=== PATIENT | female | born 1965 | race Caucasian/White ===

== ENCOUNTER 2025-07-24 15:15 | Inpatient (IN) ==
[2025-07-24 16:46] LABS: Hematocrit (blood only) 38.6 % (37.0-47.0); Hemoglobin 13.3 g/dl (12.0-16.0); Immature Granulocytes # (auto) 0.02 K/uL (0.01-0.20); Immature Granulocytes % (auto) 0.3 %; Mean Corpuscular Hemoglobin 30.2 pg (25.0-34.0); Mean Corpuscular Volume 87.5 fL (80.0-100.0); Platelet Count 261 K/uL (130-400); RDW Standard Deviation 43.2 fL (36.4-46.3); Red Blood Count 4.41 M/uL (4.20-5.40); White Blood Count 6.60 K/ul (4.8-10.8)
[2025-07-24 17:03] LABS: Alanine Aminotransferase 209.0 U/L (7-52); Albumin Globulin Ratio 1.4 (0.9-2); Albumin Level 4.4 gm/dl (3.4-5.0); Alkaline Phosphatase 320.0 U/L (34-104); Anion Gap 11.0 (3-11); Bilirubin,Total 12.6 mg/dl (0.2-1.0); Blood Urea Nitrogen 15.0 mg/dl (6-23); Calcium 9.3 mg/dl (8.6-10.3); Carbon Dioxide 23.0 mmol/L (21-32); Chloride 103.0 mmol/L (98-107); Creatinine Clr Calc Pharmacy 53.7 ml/min; Globulin 3.1 gm/dl (2.5-4.0); Glucose 97.0 mg/dl (70-99(Fasting)); Lipase 14.0 U/L (11-82); Potassium 3.9 mmol/L (3.5-5.1); Sodium 137.0 mmol/L (136-145); Total Protein 7.5 gm/dl (6.0-8.3)
[2025-07-24] MEDS: OPTIRAY 320 100ml IV ONE (17:35)
--- NOTE | 2025-07-24 18:12 | CT Scan Report ---
Technique: Axial computed tomography images were obtained of the abdomen and pelvis after the administration of intravenous contrast. No prior CT is available for comparison. Findings: The liver is overall of normal size, attenuation, and contour with no sign of cirrhosis or significant fatty infiltration. No liver mass lesion is seen. The portal vein is patent. The gallbladder appears unremarkable. There is intrahepatic and extrahepatic bile duct dilatation. There is an apparent 3 mm filling defect within the proximal common bile duct The spleen is of normal size. No focal splenic lesion is evident. The pancreas appears normal with no sign of acute or chronic pancreatitis and no mass lesion noted. The pancreatic duct is of normal caliber. The adrenal glands appear unremarkable. No definite renal or proximal ureteral calculi are seen on this contrast-enhanced study. There is no hydronephrosis or perinephric stranding. No renal mass lesion is identified. The aorta is of normal caliber. No abdominal adenopathy is seen. There is a small umbilicus hernia containing only fat. The stomach appears normal. There is no sign of small bowel obstruction. The colon appears unremarkable. The appendix appears normal also. No free intraperitoneal fluid or air is identified. No distal ureteral or bladder calculi are seen. No bladder mass lesion is evident. The iliac arteries are of normal caliber. No pelvic adenopathy is noted. The lungs bases appear clear. No fracture is identified. No focal osseous lesion is seen Impression: Bile duct dilatation with suspected obstructing choledocholithiasis findings on this exam that require communication between the performing entity and the patient following Patient Test Result Information Act ([place] ACT 112) guidelines. Electronically signed by Stephon Myers 07-24-2025 6:11 PM
--- NOTE | 2025-07-24 21:43 | History & Physical Report ---
Date of Service July 24, 2025 Assessment & Plan (1) Choledocholithiasis with obstruction: Plan 60-year-old female PMHx hypothyroidism presenting for referral by PCP for concerns of stone blood in biliary tract and concerns for jaundice. ED evaluation significant for transaminitis with AST 108, ALT 209, bilirubin 12.6, alkaline phosphatase 320. CTAP does show bile duct dilatation with suspected obstructing choledocholithiasis. At time of admission, there are no surrounding hospitals that are able to do ERCP for this patient even though admitting criteria here at [facility] recommends transfer. Pt to be admitted with plans for ERCP on 07/27, unless emergent condition arises requiring sooner transfer. #Obstructive choledocholithiasis Seen by PCP day of arrival. ED provider spoke with [facility] and ERCP cannot be completed until 07/28 across multiple hospital systems. Was told that the pt can only be transferred in the event of "an emergent condition." Dr. Mccormick to be at [facility] on 07/27 with ability to do ERCP at that time. Will manage pt with broad spectrum antibiotics IV, and keep prepped for possible surgical intervention if pt has acute worsening of symptoms such as hemodynamic instability, development of fever, worsening laboratory studies, etc. Will admit to [facility] PCU with low threshold for transfer. - CBC w/o leukocytosis/leukopenia, stable H&H; CMP bilirubin 12.9, AST 108, ALT 209, alkaline phosphatase 320; lipase 14 - trend CBC, LFTs - CTAP bile duct irritation with suspected obstructing choledocholithiasis. - NPO for now - IVF LR @ 125 mL/hr - Zofran prn N/V - Acetaminophen prn fever/pain (caution with extensive use, transaminitis), Dilaudid moderate/severe pain - Zosyn IV - MRCP pending - GI consulted - appreciate input + recs #Hyperthyroidism- H/o Graves disease, in remission. Followed with endocrinology, most recent visit 01/08/2024. No medications. Dispo: Admit, PCU - need close monitoring for acute worsening condition that would require emergent interventions/indicate transfer VTE Prophylaxis: SCDs This document was dictated utilizing [employer]. Please excuse any grammatical errors that may be secondary to use of this software. Admission and Anticipated Discharge Date Admission Date: 07/24/2025 History of Present Illness Chief Complaint: Jaundice Primary Care Provider: Kesha Oates DO 60-year-old female PMHx hypothyroidism presenting for referral by PCP for concerns of stone blood in biliary tract and concerns for jaundice. Patient states that 5 days [employer] she awoke with epigastric pain that did not feel the same as her normal indigestion. She states that moving around helped alleviate the pain some and when she took a Tums she did not notice any change in her symptoms. She ended up taking an Aleve which did help alleviate some of the discomfort she was having. 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 She denies any abdominal pain, N/V/D/C, or fever/chills. She denies any symptoms with eating, does state occasionally symptoms will make her have looser bowel movements than others, but this is not a new occurrence to her. She has not been sick otherwise. No chest pain, SOB, palpitations, numbness/tingling, URI symptoms, LUTS, weakness, syncope, or falls. Patient is concerned regarding if her insurance will cover hospital stay, initially leading to conversation about a transfer or needed going to a hospital that would assure except her insurance. She then later notes that she would just like to go to a hospital that we will treat her appropriately if transfer is needed. She is also concerned about her 5 cats that live at home, which she has rescued. States that they have a very intensive daily routine with them and she is concerned that they are not to be taking care of that she would. Patient does express some anxious feelings regarding pain for the hospital stay. Assured her that admission and treatment is highly recommended to prevent unwanted complications. Patient agreeable to stay. ED evaluation reveals CBC without leukocytosis or leukopenia, stable H&H; CMP total bilirubin 12.6, AST 108, ALT 209, alkaline phosphatase 320; CTAP bile duct dilatation with suspected obstructing choledocholithiasis. Please see Dr. Taylor's attestation for adjustments/additions to treatment plan. Allergies Allergy/AdvReac Type Severity Reaction Status Date / Time flu vaccines Allergy Uncoded 01/08/24 13:33 Home Medications Medication Instructions Recorded Confirmed Type No Known Home Medications 07/24/25 07/24/25 History Past Med/Surg History Problem List Jaundice (Acute) Choledocholithiasis with obstruction (Acute) Weight loss Hyperthyroidism Social History Smoking Status: Current every day smoker Tobacco Type: Cigarettes Cigarettes Per Day: 7; Do You Dip or Chew Tobacco: No; Tobacco Cessation Education Requested by Patient: No Hx Alcohol Use: No Hx Substance Use: No Preferred Language: Comoran Communication Ability: 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 Beliefs That Will Affect Care: None Current Living Situation: Alone Other Information That Helps Us Care for You: No Feels Safe at Home: Yes Safety Concerns: Feels Safe At This Time Assistive Devices: Contacts Review of Systems Review of Systems: All systems reviewed & are unremarkable except as noted in Subjective Physical Exam Physical Exam: General: No acute distress Skin: Warm and dry; jaundice down to chest Head: Normocephalic, atraumatic Eyes: PERRL, conjunctivae clear, sclera icteric ENT: External ear and ear canal without swelling; nose atraumatic; good dentition, tongue normal appearance, pharynx normal Neck: Supple, no LAD Cardio: RRR, no M/G/R, S1 and S2 normal Resp: No respiratory distress, Lungs CTA in all lobes bilaterally, no wheezes, rales, or rhonchi Abdomen: Soft, symmetric, nontender; negative Watkins sign; No masses or hepatosplenomegaly; Bowel sounds normoactive MSK: No deformities; pulses palpable and equal; no edema. Neuro: Awake, alert; Sensation intact bilaterally; CN grossly intact Psych: Tearful at times when discussing finances and pets at home; appropriate mood and affect; good judgement and insight. CousinPaulina, present in room at time of visit. Results & Data Results & Data Vital Signs (Past 12 Hours) Vital Signs Temp Pulse Pulse Resp BP BP Pulse Ox 07/24/25 20:48 69 19 123/78 97 07/24/25 20:13 64 19 138/81 98 07/24/25 15:59 36.0 C L 73 18 144/90 H 96 O2 Del Method 07/24/25 20:48 Room Air 07/24/25 20:13 Room Air 07/24/25 15:59 Room Air Laboratory Results 07/24/25 16:32 WBC 6.60 RBC 4.41 Hgb 13.3 Hct 38.6 MCV 87.5 MCH 30.2 MCHC 34.5 RDW Std Deviation 43.2 RDW Coeff of Nia 13.4 Plt Count 261 MPV 9.9 Immature Gran % (Auto) 0.3 Neut % (Auto) 73.9 Lymph % (Auto) 17.0 Randall % (Auto) 8.0 Eos % (Auto) 0.5 Baso % (Auto) 0.3 Neut # (Auto) 4.88 Lymph # (Auto) 1.12 L Randall # (Auto) 0.53 Eos # (Auto) 0.03 Baso # (Auto) 0.02 Immature Gran # (Auto) 0.02 Sodium 137 Potassium 3.9 Chloride 103 Carbon Dioxide 23 Anion Gap 11 BUN 15 Creatinine 1.14 Est Cr Clr Drug Dosing 53.7 eGFR 55.80 BUN/Creatinine Ratio 13.2 Glucose 97 Calcium 9.3 Total Bilirubin 12.6 H AST 108 H ALT 209 H Alkaline Phosphatase 320 H Total Protein 7.5 Albumin 4.4 Globulin 3.1 Albumin/Globulin Ratio 1.4 Lipase 14 Diagnostic Findings Abdomen/Pelvis CT 07/24/25 16:09 Technique: Axial computed tomography images were obtained of the abdomen and pelvis after the administration of intravenous contrast. No prior CT is available for comparison. Findings: The liver is overall of normal size, attenuation, and contour with no sign of cirrhosis or significant fatty infiltration. No liver mass lesion is seen. The portal vein is patent. The gallbladder appears unremarkable. There is intrahepatic and extrahepatic bile duct dilatation. There is an apparent 3 mm filling defect within the proximal common bile duct The spleen is of normal size. No focal splenic lesion is evident. The pancreas appears normal with no sign of acute or chronic pancreatitis and no mass lesion noted. The pancreatic duct is of normal caliber. The adrenal glands appear unremarkable. No definite renal or proximal ureteral calculi are seen on this contrast-enhanced study. There is no hydronephrosis or perinephric stranding. No renal mass lesion is identified. The aorta is of normal caliber. No abdominal adenopathy is seen. There is a small umbilicus hernia containing only fat. The stomach appears normal. There is no sign of small bowel obstruction. The colon appears unremarkable. The appendix appears normal also. No free intraperitoneal fluid or air is identified. No distal ureteral or bladder calculi are seen. No bladder mass lesion is evident. The iliac arteries are of normal caliber. No pelvic adenopathy is noted. The lungs bases appear clear. No fracture is identified. No focal osseous lesion is seen Impression: Bile duct dilatation with suspected obstructing choledocholithiasis findings on this exam that require communication between the performing entity and the patient following Patient Test Result Information Act ([place] ACT 112) guidelines. Electronically signed by Stephon Myers 07-24-2025 6:11 PM Code Status & VTE Plan Code Status Full Supervising Physician Co-Signing Physician Notes Attending addendum: I have physically seen this patient, have supervised the RAJANI's activities, and agree with the H&P unless as otherwise noted. Assessment and Plan: The patient is a 60-year-old female past medical history including hyperthyroidism who was referred by her PCP due to concerns regarding jaundice. ED evaluation with the following abnormal laboratories: Bilirubin 12.6, AST 108, ALT 209, alkaline phosphatase 320. CT scan of abdomen pelvis was concerning for intra and extrahepatic biliary ductal dilatation, and possible obstructive choledocholithiasis. [facility] Abnormal LFTs/obstructive jaundice pattern- Laboratories as above, follow serially CT scan suggestive of intrahepatic and extrahepatic bile duct dilatation and possible obstructing stone in the common bile duct. N.p.o. Zofran 4 mg IV every 6 hours as needed Zosyn 4.5 g IV every 8 hours LR at 125 mL/h Hold acetaminophen Order MRCP Of note, tertiary care centers including [facility] and [facility] both said that the patient did not require acute transfer, and would except the patient if she worsened. Remaining orders and notations as noted PG Care Time/CCT Total # of Minutes Spent Total Time Spent with Patient: Total time spent is greater than 50% in coordination of care (as documented) at patient's floor/unit and/or counseling patient: Coding Level of Care Code 09001 INT INP/OBS CARE 3/75MIN Diagnoses Choledocholithiasis with obstruction K80.51
--- NOTE | 2025-07-24 22:03 | Emergency Department Note ---
Impression & Plan Choledocholithiasis with obstruction, Jaundice ED Provider Note NAME: SORAYA FERGUSON AGE: 60 SEX: F : 1965 ARRIVES VIA: Walk-In INFORMANT: Patient, ED PROVIDER(S): Albin Nicholson MD CHIEF COMPLAINT: Abnormal abdominal ultrasound HPI: This is a 60-year-old female seen for abdominal ultrasound abnormality. Patient reported having pain on Sunday patient took some pain medication as improved. Since that she has had no current symptoms aside from worsening jaundice. She notes her eyes became yellow. She talked to her primary care doctor who ordered blood work and an ultrasound. This showed abnormality showing possible biliary tract. She was sent to the hospital for further workup. She reports no fever, chills, nausea, vomiting, pain, shortness of breath or chest pain. ROS: See above HPI for pertinent positives & negatives. A total of 10 systems reviewed and were otherwise negative. PAST MEDICAL HISTORY: See Below PAST SURGICAL HISTORY: See Below FAMILY HISTORY: See Below SOCIAL HISTORY: See Below HOME MEDICATIONS: See Below ALLERGIES: See Below VITALS: See Below PHYSICAL EXAMINATION: General: resting comfortably in no acute distress Head: Normocephalic and atraumatic Eyes: Normal inspection, extraocular muscles intact, scleral icterus Ear, nose, throat: Normal external exam Neck: Normal range of motion Respiratory: lungs clear to auscultation bilaterally Cardiovascular: Regular rate/rhythm, no murmur GI: soft, nontender, no guarding or rebound Extremities: nontender, moves all extremities Neuro: The patient awake and alert, appropriately conversive, no focal deficits, symmetric faces Skin: Warm, dry, and intact, jaundice skin MEDICAL DECISION MAKING: This is a 60-year-old female presenting for abnormal ultrasound/jaundice. Patient had a CT imaging, blood work done at triage. - This reveals transaminitis 108/209 AST/ALT with a total bilirubin of 12.6. -CT imaging reveals CBD dilation with suspected obstructing choledocholithiasis. Patient may have these findings. -We currently do not have ERCP coverage at the hospital. Discussed with patient she will to go to [facility]. -Discussed with [facility], hospitalist, Dr. Fatima, except the patient however they did let me know that this was too [facility] [address] [facility]. They would not be able to do the ERCP until Sunday at the earliest. We then discussed possible transfer to [facility] which states he would not have a bed till Sunday and ERCP later on. -After discussion with patient, will attempt to admit the patient here as we do have ERCP coverage starting Sunday, 2 days from now. -Care shows Dr. Herrera for admission. -Dr Herrera, requests I call at another hospital to assess for ERCP needs - Discussed case with [facility], GI, EGS and hospitalist. Discussed clinical history, blood work, imaging. They state it is to be nonemergent ERCP and would not perform ERCP until Sunday at the earliest. They recommend if ERCP is available at this hospital to keep her. If things change such as fevers, sepsis, cholangitis to call back immediately for emergent ERCP needs. -Patient ultimately admitted to this hospital. Differential diagnosis: Cirrhosis, hepatitis, choledocholithiasis, cholangitis, cholecystitis Diagnostics interpreted by me: ECG: None Cardiac Monitoring: An order was placed for continuous cardiac monitoring. The monitor shows a rate of 69 with sinus rhythm. Past Med/Surg History Problem List (Updated 07/24/25 @ 23:54 by Albin Nicholson MD) Jaundice (Acute) Choledocholithiasis with obstruction (Acute) Weight loss Hyperthyroidism Social History Smoking Status: Current some day smoker Preferred Language: Ghanaian Feels Safe at Home: Yes Allergies Allergies Allergy/AdvReac Type Severity Reaction Status Date / Time flu vaccines Allergy Uncoded 01/08/24 13:33 Home Meds Home Medications Medication Instructions Recorded Confirmed No Known Home Medications 07/24/25 07/24/25 Results & Data (ED) Vital Signs Vital Signs - 24 hr 07/24/25 15:59 07/24/25 20:13 07/24/25 20:48 Temperature 36.0 C L Temperature Source Temporal Artery Scan Pulse Rate 73 Pulse Rate [Right Finger] 64 69 Respiratory Rate 18 19 19 Respiratory Effort / Characteristics Non-Labored Spontaneous Respiratory Depth Normal Blood Pressure 144/90 H Blood Pressure [Right Arm] 138/81 123/78 Blood Pressure Mean 108 Blood Pressure Mean [Right Arm] 100 93 Pulse Oximetry 96 98 97 Oxygen Delivery Method Room Air Room Air Room Air Sepsis New/Unexplained Change in Mental Status No Sepsis Action Taken by Nursing No Action Required Laboratory Data 07/24/25 16:32 07/24/25 16:32 Lab Results 07/24/25 Range/Units 16:32 WBC 6.60 (4.8-10.8) K/ul RBC 4.41 (4.20-5.40) M/uL Hgb 13.3 (12.0-16.0) g/dl Hct 38.6 (37.0-47.0) % MCV 87.5 (80.0-100.0) fL MCH 30.2 (25.0-34.0) pg MCHC 34.5 (32.0-36.0) g/dL RDW Std Deviation 43.2 (36.4-46.3) fL RDW Coeff of Nia 13.4 (11.5-14.5) % Plt Count 261 (130-400) K/uL MPV 9.9 (9.4-12.4) fL Immature Gran % (Auto) 0.3 % Neut % (Auto) 73.9 % Lymph % (Auto) 17.0 % [place] % (Auto) 8.0 % Eos % (Auto) 0.5 % Baso % (Auto) 0.3 % Neut # (Auto) 4.88 (1.40-6.50) K/uL Lymph # (Auto) 1.12 L (1.20-3.40) K/uL [place] # (Auto) 0.53 (0.11-0.59) K/uL Eos # (Auto) 0.03 (0.00-0.50) K/uL Baso # (Auto) 0.02 (0.00-0.20) K/uL Immature Gran # (Auto) 0.02 (0.01-0.20) K/uL Sodium 137 (136-145) mmol/L Potassium 3.9 (3.5-5.1) mmol/L Chloride 103 (98-107) mmol/L Carbon Dioxide 23 (21-32) mmol/L Anion Gap 11 (3-11) BUN 15 (6-23) mg/dl Creatinine 1.14 (0.6-1.2) mg/dl Est Cr Clr Drug Dosing 53.7 ml/min eGFR 55.80 BUN/Creatinine Ratio 13.2 (10-20) Glucose 97 (70-99(Fasting)) mg/dl Calcium 9.3 (8.6-10.3) mg/dl Total Bilirubin 12.6 H (0.2-1.0) mg/dl Direct Bilirubin 8.3 H (0-0.2) mg/dl AST 108 H (13-39) U/L ALT 209 H (7-52) U/L Alkaline Phosphatase 320 H (34-104) U/L Total Protein 7.5 (6.0-8.3) gm/dl Albumin 4.4 (3.4-5.0) gm/dl Globulin 3.1 (2.5-4.0) gm/dl Albumin/Globulin Ratio 1.4 (0.9-2) Lipase 14 (11-82) U/L Administered Medications Discontinued Medications Piperacillin Sod/Tazobactam Sod (Zosyn) 4.5 gm in 100 mls @ 200 mls/hr IV NOW STA; Protocol Stop: 07/24/25 23:37 Last Admin: 07/24/25 23:47 Dose: 200 mls/hr Documented By: Ioversol (Optiray 320 100ml) 93 ml IV ONCE ONE Stop: 07/24/25 17:36 Last Admin: 07/24/25 17:35 Dose: 93 ml Documented By: EAJesu Imaging Data Radiologist's Impression: Abdomen/Pelvis CT 07/24/25 16:09 Technique: Axial computed tomography images were obtained of the abdomen and pelvis after the administration of intravenous contrast. No prior CT is available for comparison. Findings: The liver is overall of normal size, attenuation, and contour with no sign of cirrhosis or significant fatty infiltration. No liver mass lesion is seen. The portal vein is patent. The gallbladder appears unremarkable. There is intrahepatic and extrahepatic bile duct dilatation. There is an apparent 3 mm filling defect within the proximal common bile duct The spleen is of normal size. No focal splenic lesion is evident. The pancreas appears normal with no sign of acute or chronic pancreatitis and no mass lesion noted. The pancreatic duct is of normal caliber. The adrenal glands appear unremarkable. No definite renal or proximal ureteral calculi are seen on this contrast-enhanced study. There is no hydronephrosis or perinephric stranding. No renal mass lesion is identified. The aorta is of normal caliber. No abdominal adenopathy is seen. There is a small umbilicus hernia containing only fat. The stomach appears normal. There is no sign of small bowel obstruction. The colon appears unremarkable. The appendix appears normal also. No free intraperitoneal fluid or air is identified. No distal ureteral or bladder calculi are seen. No bladder mass lesion is evident. The iliac arteries are of normal caliber. No pelvic adenopathy is noted. The lungs bases appear clear. No fracture is identified. No focal osseous lesion is seen Impression: Bile duct dilatation with suspected obstructing choledocholithiasis findings on this exam that require communication between the performing entity and the patient following Patient Test Result Information Act ([place] ACT 112) guidelines. Electronically signed by Stephon Myers 07-24-2025 6:11 PM Discharge Plan Visit Data Chief Complaint: Referred by Doctor Stated Complaint: GALLSTONE, JAUNDICE ED Provider: Albin Nicholson Discharge Problem: Choledocholithiasis with obstruction, Jaundice Patient Disposition: Admitted As Inpatient Condition: Fair Forms Stand Alone Forms: [place] Prescriptions Prescriptions: No Action No Known Home Medications Referrals Referrals: Kesha Oates DO [Primary Care Provider] -
[2025-07-24] MEDS ORDERED: ONDANSETRON INJ 2 MG/ML 2 ML VIAL IV PRN (22:23)
[2025-07-24] MEDS ORDERED: ACETAMINOPHEN 1,000 MG/100 ML VIAL IV PRN (23:21)
[2025-07-24] MEDS ORDERED: HYDROmorphone INJ 0.5 MG/0.5 ML SYR IV PRN ×2 (23:22)
[2025-07-24] MEDS: PIPERACILLIN/TAZOBACTAM 4.5 GM/100 ML BAG IV STA (23:47)
[2025-07-25] MEDS: LACTATED RINGER'S 1,000 ML IV SCH (00:50)
[2025-07-25] MEDS ORDERED: ONDANSETRON INJ 2 MG/ML 2 ML VIAL IV PRN (00:50)
--- NOTE | 2025-07-25 01:21 | Magnetic Resonance Report ---
Exam(s): MRI MRCP EXAM: MR Abdomen Without Intravenous Contrast, MRCP Protocol CLINICAL HISTORY: Choledocholithiasis, bili 12. TECHNIQUE: Multiplanar magnetic resonance images of the abdomen without intravenous contrast using MRCP protocol. COMPARISON: CT abdomen and pelvis with contrast performed at 1727 hours FINDINGS: Limitations: There is respiratory artifact, which degrades image quality on multiple image slices. Bile ducts: There is marked dilation of the intrahepatic biliary tree, with the common bile duct measuring 10 mm at the dagoberto hepatis. There is abrupt transition distal to the dagoberto hepatis with an abrupt cutoff for meniscus sign. No obvious choledocholithiasis identified. The distal common bile duct is asymmetrically decompressed, measuring only 3 mm at the head of the pancreas. There is partially occlusive debris in the dependent biliary radicles serving segment 6 (series 4; image 20). Gallbladder: There is a rounded hypointense T2 structure in the gallbladder measuring 2.5 cm with the gallbladder collapsed around the structure. No definite gallbladder wall thickening. Liver: As above. No focal hepatic abnormality. Pancreas: Unremarkable. No ductal dilation. Spleen: Unremarkable. No splenomegaly. Adrenals: Unremarkable. No mass. Kidneys and ureters: Unremarkable. No hydronephrosis. Stomach and bowel: Unremarkable. No obstruction. IMPRESSION: 1. There is marked dilation of the intrahepatic biliary tree, with the common bile duct measuring 10 mm at the dagoberto hepatis. There is abrupt transition distal to the dagoberto hepatis with an abrupt cutoff for meniscus sign. No obvious choledocholithiasis identified. The distal common bile duct is asymmetrically decompressed, measuring only 3 mm at the head of the pancreas. Differential consideration includes tumefactive sludge or a subtle mass lesion in the common bile duct, not clearly evident. Histologic sampling of this lesion is recommended, as clinically indicated. 2. There is partially occlusive debris in the dependent biliary radicles serving segment 6 (series 4; image 20). 3. There is a rounded hypointense T2 structure in the gallbladder measuring 2.5 cm with the gallbladder collapsed around the structure. A gallstone is the primary consideration. Electronically signed by: Inderjit Reid MD 07/25/25 01:21 AM
[2025-07-25] MEDS: PIPERACILLIN/TAZOBACTAM 4.5 GM/100 ML BAG IV SCH (04:13)
[2025-07-25 07:02] LABS: Hematocrit (blood only) 36.2 % (37.0-47.0); Hemoglobin 12.9 g/dl (12.0-16.0); Mean Corpuscular Hemoglobin 30.9 pg (25.0-34.0); Mean Corpuscular Volume 86.6 fL (80.0-100.0); Platelet Count 236 K/uL (130-400); RDW Standard Deviation 41.7 fL (36.4-46.3); Red Blood Count 4.18 M/uL (4.20-5.40); White Blood Count 5.60 K/ul (4.8-10.8)
[2025-07-25 08:02] LABS: Alanine Aminotransferase 179 U/L (7-52); Albumin Level 4.0 gm/dl (3.4-5.0); Alkaline Phosphatase 296 U/L (34-104); Bilirubin,Total 13.6 mg/dl (0.2-1.0); Total Protein 6.8 gm/dl (6.0-8.3)
--- NOTE | 2025-07-25 09:06 | Gastrointestinal Consultation ---
Date of Consultation July 25, 2025 Assessment & Plan (1) Choledocholithiasis with obstruction: [place] woman with bile duct obstruction without evidence of cholangitis. She needs ERCP and will plan for Sunday. If she develops rigors or fever she will need emergent transfer to facility with ERCP this . Agree with covering with antibiotics. History of Present Illness Reason for Consultation: jaundice, choledocholithiasis Attending Physician: Janey Peters MD History of Present Illness 60 year old female who had a significant spell of "indigestion" on Sunday that lasted about 5 hours. It finally went away after taking motrin. On Sunday she noticed her urine turning dark and then she started turning yellow. She was admitted to hospital with bilirubin of over 12 and elevated LFT's. Her WBC is normal. CT and MRCP suggested choledocholithiasis or bile duct obstruction from some issue. She currently is feeling asymptomatic. Today's labs are slightly worse. She has had discomfort like that before but only rarely. She has never seen a GI doctor before. She has had cologuard testing done for cancer screening. Allergies Allergy/AdvReac Type Severity Reaction Status Date / Time flu vaccines Allergy Uncoded 01/08/24 13:33 Home Medications Medication Instructions Recorded Confirmed Type No Known Home Medications 07/24/25 07/24/25 History Patient History Social History Smoking Status: Current every day smoker Tobacco Type: Cigarettes Cigarettes Per Day: 7; Do You Dip or Chew Tobacco: No; Tobacco Cessation Education Requested by Patient: No Hx Alcohol Use: No Hx Substance Use: No Preferred Language: Maori Communication Ability: Effective Right Of Way Agent Required: No Beliefs That Will Affect Care: None Current Living Situation: Alone Other Information That Helps Us Care for You: No Feels Safe at Home: Yes Safety Concerns: Feels Safe At This Time Assistive Devices: Contacts Review of Systems Review of Systems: All systems reviewed & are unremarkable except as noted in HPI & below Physical Exam Physical Exam: Pleasant, icteric female in no distress Constitutional: WD/WN, vitals as above Eyes: sclerae not anicteric Neck: trachea midline, no thyromegaly Respiratory: normal respiratory effort, lungs clear to auscultation Cardiovascular: RRR, no murmur, no edema Gastrointestinal (Abdomen): normal bowel sounds, soft, nontender, no hepatosplenomegaly Results & Data Vital Signs (Past 12 Hours) Vital Signs Temp Pulse Pulse Resp BP Pulse Ox O2 Del Method 07/25/25 07:16 36.6 C 65 20 117/73 95 Room Air 07/25/25 07:08 55 L 07/25/25 03:05 36.7 C 63 17 125/78 96 Room Air 07/25/25 01:30 61 Laboratory Results 07/25/25 07/24/25 Range/Units 06:32 16:32 WBC 5.60 6.60 (4.8-10.8) K/ul RBC 4.18 L 4.41 (4.20-5.40) M/uL Hgb 12.9 13.3 (12.0-16.0) g/dl Hct 36.2 L 38.6 (37.0-47.0) % MCV 86.6 87.5 (80.0-100.0) fL MCH 30.9 30.2 (25.0-34.0) pg MCHC 35.6 34.5 (32.0-36.0) g/dL RDW Std Deviation 41.7 43.2 (36.4-46.3) fL RDW Coeff of Nia 13.2 13.4 (11.5-14.5) % Plt Count 236 261 (130-400) K/uL MPV 10.3 9.9 (9.4-12.4) fL Immature Gran % (Auto) 0.3 % Neut % (Auto) 73.9 % Lymph % (Auto) 17.0 % [place] % (Auto) 8.0 % Eos % (Auto) 0.5 % Baso % (Auto) 0.3 % Neut # (Auto) 4.88 (1.40-6.50) K/uL Lymph # (Auto) 1.12 L (1.20-3.40) K/uL [place] # (Auto) 0.53 (0.11-0.59) K/uL Eos # (Auto) 0.03 (0.00-0.50) K/uL Baso # (Auto) 0.02 (0.00-0.20) K/uL Immature Gran # (Auto) 0.02 (0.01-0.20) K/uL Sodium 137 (136-145) mmol/L Potassium 3.9 (3.5-5.1) mmol/L Chloride 103 (98-107) mmol/L Carbon Dioxide 23 (21-32) mmol/L Anion Gap 11 (3-11) BUN 15 (6-23) mg/dl Creatinine 1.14 (0.6-1.2) mg/dl Est Cr Clr Drug Dosing 53.7 ml/min eGFR 55.80 BUN/Creatinine Ratio 13.2 (10-20) Glucose 97 (70-99(Fasting)) mg/dl Calcium 9.3 (8.6-10.3) mg/dl Total Bilirubin 13.6 H 12.6 H (0.2-1.0) mg/dl Direct Bilirubin TNP 8.3 H (0-0.2) mg/dl AST 95 H 108 H (13-39) U/L ALT 179 H 209 H (7-52) U/L Alkaline Phosphatase 296 H 320 H (34-104) U/L Total Protein 6.8 7.5 (6.0-8.3) gm/dl Albumin 4.0 4.4 (3.4-5.0) gm/dl Globulin 3.1 (2.5-4.0) gm/dl Albumin/Globulin Ratio 1.4 (0.9-2) Lipase 14 (11-82) U/L Diagnostic Findings Abdomen/Pelvis CT 07/24/25 16:09 Technique: Axial computed tomography images were obtained of the abdomen and pelvis after the administration of intravenous contrast. No prior CT is available for comparison. Findings: The liver is overall of normal size, attenuation, and contour with no sign of cirrhosis or significant fatty infiltration. No liver mass lesion is seen. The portal vein is patent. The gallbladder appears unremarkable. There is intrahepatic and extrahepatic bile duct dilatation. There is an apparent 3 mm filling defect within the proximal common bile duct The spleen is of normal size. No focal splenic lesion is evident. The pancreas appears normal with no sign of acute or chronic pancreatitis and no mass lesion noted. The pancreatic duct is of normal caliber. The adrenal glands appear unremarkable. No definite renal or proximal ureteral calculi are seen on this contrast-enhanced study. There is no hydronephrosis or perinephric stranding. No renal mass lesion is identified. The aorta is of normal caliber. No abdominal adenopathy is seen. There is a small umbilicus hernia containing only fat. The stomach appears normal. There is no sign of small bowel obstruction. The colon appears unremarkable. The appendix appears normal also. No free intraperitoneal fluid or air is identified. No distal ureteral or bladder calculi are seen. No bladder mass lesion is evident. The iliac arteries are of normal caliber. No pelvic adenopathy is noted. The lungs bases appear clear. No fracture is identified. No focal osseous lesion is seen Impression: Bile duct dilatation with suspected obstructing choledocholithiasis findings on this exam that require communication between the performing entity and the patient following Patient Test Result Information Act ([place] ACT 112) guidelines. Electronically signed by Stephon Myers 07-24-2025 6:11 PM Cholangiopancreatography MRI 07/24/25 22:23 Exam(s): MRI MRCP EXAM: MR Abdomen Without Intravenous Contrast, MRCP Protocol CLINICAL HISTORY: Choledocholithiasis, bili 12. TECHNIQUE: Multiplanar magnetic resonance images of the abdomen without intravenous contrast using MRCP protocol. COMPARISON: CT abdomen and pelvis with contrast performed at 1727 hours FINDINGS: Limitations: There is respiratory artifact, which degrades image quality on multiple image slices. Bile ducts: There is marked dilation of the intrahepatic biliary tree, with the common bile duct measuring 10 mm at the dagoberto hepatis. There is abrupt transition distal to the dagoberto hepatis with an abrupt cutoff for meniscus sign. No obvious choledocholithiasis identified. The distal common bile duct is asymmetrically decompressed, measuring only 3 mm at the head of the pancreas. There is partially occlusive debris in the dependent biliary radicles serving segment 6 (series 4; image 20). Gallbladder: There is a rounded hypointense T2 structure in the gallbladder measuring 2.5 cm with the gallbladder collapsed around the structure. No definite gallbladder wall thickening. Liver: As above. No focal hepatic abnormality. Pancreas: Unremarkable. No ductal dilation. Spleen: Unremarkable. No splenomegaly. Adrenals: Unremarkable. No mass. Kidneys and ureters: Unremarkable. No hydronephrosis. Stomach and bowel: Unremarkable. No obstruction. IMPRESSION: 1. There is marked dilation of the intrahepatic biliary tree, with the common bile duct measuring 10 mm at the dagobetro hepatis. There is abrupt transition distal to the dagoberto hepatis with an abrupt cutoff for meniscus sign. No obvious choledocholithiasis identified. The distal common bile duct is asymmetrically decompressed, measuring only 3 mm at the head of the pancreas. Differential consideration includes tumefactive sludge or a subtle mass lesion in the common bile duct, not clearly evident. Histologic sampling of this lesion is recommended, as clinically indicated. 2. There is partially occlusive debris in the dependent biliary radicles serving segment 6 (series 4; image 20). 3. There is a rounded hypointense T2 structure in the gallbladder measuring 2.5 cm with the gallbladder collapsed around the structure. A gallstone is the primary consideration. Electronically signed by: Inderjit Reid MD 07/25/25 01:21 AM
--- NOTE | 2025-07-25 11:15 | Surgery Consultation ---
Date of Consultation July 25, 2025 Assessment & Plan (1) Choledocholithiasis with obstruction: needs ERCP no plans for lap mary urgently large stone in GB 2.5 cm no signs of cholecystis likely plan lap mary as outpatient History of Present Illness Attending Physician: Janey Peters MD History of Present Illness This a 60YO admitted with painless jaundice. She noted her urine turning dark and then she started turning yellow last week. She was admitted to hospital with bilirubin of over 12 and elevated LFT's. Her WBC is normal. CT and MRCP suggested choledocholithiasis or bile duct obstruction. Allergies Allergy/AdvReac Type Severity Reaction Status Date / Time flu vaccines Allergy Uncoded 01/08/24 13:33 Home Medications Medication Instructions Recorded Confirmed Type No Known Home Medications 07/24/25 07/24/25 History Patient History Social History Smoking Status: Current every day smoker Tobacco Type: Cigarettes Cigarettes Per Day: 7; Do You Dip or Chew Tobacco: No; Tobacco Cessation Education Requested by Patient: No Hx Alcohol Use: No Hx Substance Use: No Preferred Language: Kyrgyz Communication Ability: Effective [employer] Checker Required: No Beliefs That Will Affect Care: None Current Living Situation: Alone Other Information That Helps Us Care for You: No Feels Safe at Home: Yes Safety Concerns: Feels Safe At This Time Assistive Devices: Contacts Review of Systems Constitutional: no fever and no chills Respiratory: no cough and no dyspnea Cardiovascular: no chest pain Gastrointestinal: no abdominal pain, no nausea and no vomiting Genitourinary: no dysuria Integumentary: + yellowing of the skin Neurologic: no localized weakness and no generalized weakness Psychiatric: no behavioral changes Endocrine: no fatigue Hematologic / Lymphatic: no easy bleeding and no easy bruising Physical Exam Constitutional: WD/WN, vitals as above Eyes: + scleral abnormality ENMT: external ear and nose normal, oropharynx normal Respiratory: normal respiratory effort, lungs clear to auscultation Cardiovascular: Rate/Rhythm: regular rate and regular rhythm Gastrointestinal (Abdomen): Inspection/Auscultation: abdomen normal to inspection and normal bowel sounds; abdomen not distended Percussion/Palpation: abdomen soft; abdomen nontender Musculoskeletal: Head/Neck/Chest: normocephalic and head atraumatic Skin: no rashes, warm and dry Psychiatric: Orientation: alert Results & Data Vital Signs (Past 12 Hours) Vital Signs Temp Pulse Pulse Resp BP Pulse Ox O2 Del Method 07/25/25 07:16 36.6 C 65 20 117/73 95 Room Air 07/25/25 07:08 55 L 07/25/25 03:05 36.7 C 63 17 125/78 96 Room Air 07/25/25 01:30 61 Diagnostic Findings Exam(s): MRI MRCP EXAM: MR Abdomen Without Intravenous Contrast, MRCP Protocol CLINICAL HISTORY: Choledocholithiasis, bili 12. TECHNIQUE: Multiplanar magnetic resonance images of the abdomen without intravenous contrast using MRCP protocol. COMPARISON: CT abdomen and pelvis with contrast performed at 1727 hours FINDINGS: Limitations: There is respiratory artifact, which degrades image quality on multiple image slices. Bile ducts: There is marked dilation of the intrahepatic biliary tree, with the common bile duct measuring 10 mm at the dagoberto hepatis. There is abrupt transition distal to the dagoberto hepatis with an abrupt cutoff for meniscus sign. No obvious choledocholithiasis identified. The distal common bile duct is asymmetrically decompressed, measuring only 3 mm at the head of the pancreas. There is partially occlusive debris in the dependent biliary radicles serving segment 6 (series 4; image 20). Gallbladder: There is a rounded hypointense T2 structure in the gallbladder measuring 2.5 cm with the gallbladder collapsed around the structure. No definite gallbladder wall thickening. Liver: As above. No focal hepatic abnormality. Pancreas: Unremarkable. No ductal dilation. Spleen: Unremarkable. No splenomegaly. Adrenals: Unremarkable. No mass. Kidneys and ureters: Unremarkable. No hydronephrosis. Stomach and bowel: Unremarkable. No obstruction. IMPRESSION: 1. There is marked dilation of the intrahepatic biliary tree, with the common bile duct measuring 10 mm at the dagoberto hepatis. There is abrupt transition distal to the dagoberto hepatis with an abrupt cutoff for meniscus sign. No obvious choledocholithiasis identified. The distal common bile duct is asymmetrically decompressed, measuring only 3 mm at the head of the pancreas. Differential consideration includes tumefactive sludge or a subtle mass lesion in the common bile duct, not clearly evident. Histologic sampling of this lesion is recommended, as clinically indicated. 2. There is partially occlusive debris in the dependent biliary radicles serving segment 6 (series 4; image 20). 3. There is a rounded hypointense T2 structure in the gallbladder measuring 2.5 cm with the gallbladder collapsed around the structure. A gallstone is the primary consideration.
--- NOTE | 2025-07-25 14:40 | Hospitalist Progress Note ---
Date of Service July 25, 2025 Assessment & Plan (1) Choledocholithiasis with obstruction: Plan 60-year-old admitted with biliary obstruction and significant jaundice. asymptomatic at this point however did have an episode of epigastric pain/heartburn type pain earlier this week prior to the onset of jaundice. CT and ultrasound imaging notable for 2.5 cm gallstone and biliary dilatation. MRCP on 07/24 showed marked intrahepatic biliary dilatation, 10 mm common bile duct at dagoberto hepatis, abrupt transition distal to the dagoberto hepatis with abrupt cut off no obvious choledocholithiasis identified, asymptomatic decompression of common bile duct measuring only 3 mm at the head of the pancreas # biliary obstruction, cholelithiasis the biliary obstruction is probably related to choledocholithiasis though other possibilities remain gastroenterology and general surgery have consulted, reviewed recommendations and their notes on 07/25 remains stable thus far without evidence of sepsis - continue pip-tazo - ERCP recommended, we will have ERCP capability on Sunday. Transfer to another facility was extensively investigated by the ED on the day of admission and no other facilities are able to achieve the ERCP faster than that. Continue to monitor here with serial exam, CMP at least daily, monitor vital signs - trial of allowing clear liquid diet, n.p.o. after midnight on Sunday night - DVT prophylaxis with subcu heparin hold prior to ERCP #Hyperthyroidism- H/o Graves disease, in remission. Followed with endocrinology, most recent visit 01/08/2024. No medications. Admission and Anticipated Discharge Date Admission Date: July 24, 2025 Subjective Siobhan feels fine. No abdominal or right shoulder pain, no nausea. Feels hungr y. Remains jaundiced - this started sunday. Had episode of epigastric abd pain prior to that. No chronic gallbladder symptoms. No fever/chills. Has some chronic back pain, unchanged from usual. Physical Exam Physical Exam: Last 24h vitals reviewed GEN: no acute distress, sitting in bed HEENT: pupils equal, sclerae icteric, moist MM RESP: normal WOB, CTAB CV: reg no mrg ABD: soft/nt/nd +BT : no andrew SKIN: warm and dry, no generalized rashes. Significant jaundice NEURO: AOx person, place, and situation. Face symmetric, speech normal, moves 4 ext spontaneously and equally Results & Data Results & Data Vital Signs (Past 12 Hours) Vital Signs Temp Pulse Pulse Resp BP Pulse Ox O2 Del Method 07/25/25 14:25 65 07/25/25 11:13 36.6 C 65 20 109/74 96 Room Air 07/25/25 07:16 36.6 C 65 20 117/73 95 Room Air 07/25/25 07:08 55 L 07/25/25 03:05 36.7 C 63 17 125/78 96 Room Air Laboratory Results blood count 5.6 hemoglobin normal platelets normal Electrolytes normal BUN 15 creatinine 1.14 Bilirubin increased to 13.6 AST 95, ALT 179, and alk phos 296 Lipase 14 yesterday PG Care Time/CCT Total # of Minutes Spent Total Time Spent with Patient: Total time spent is greater than 50% in coordination of care (as documented) at patient's floor/unit and/or counseling patient: Coding Level of Care Code 15332 SUB INP/OBS CARE 350MIN Diagnoses Choledocholithiasis with obstruction K80.51
[2025-07-25] MEDS: HEPARIN SOD 5,000 UNIT/0.5 ML VIAL SQ SCH (20:20)
[2025-07-26 07:19] LABS: Hematocrit (blood only) 34.9 % (37.0-47.0); Hemoglobin 12.5 g/dl (12.0-16.0); Mean Corpuscular Hemoglobin 31.3 pg (25.0-34.0); Mean Corpuscular Volume 87.3 fL (80.0-100.0); Platelet Count 233 K/uL (130-400); RDW Standard Deviation 43.3 fL (36.4-46.3); Red Blood Count 4.00 M/uL (4.20-5.40); White Blood Count 4.57 K/ul (4.8-10.8)
[2025-07-26 07:42] LABS: Alanine Aminotransferase 146.0 U/L (7-52); Albumin Globulin Ratio 1.5 (0.9-2); Albumin Level 3.7 gm/dl (3.4-5.0); Alkaline Phosphatase 276.0 U/L (34-104); Anion Gap 7.0 (3-11); Bilirubin,Total 14.6 mg/dl (0.2-1.0); Blood Urea Nitrogen 9.0 mg/dl (6-23); Calcium 9.0 mg/dl (8.6-10.3); Carbon Dioxide 28.0 mmol/L (21-32); Chloride 104.0 mmol/L (98-107); Creatinine Clr Calc Pharmacy 56.7 ml/min; Globulin 2.4 gm/dl (2.5-4.0); Glucose 94.0 mg/dl (70-99(Fasting)); Potassium 3.9 mmol/L (3.5-5.1); Sodium 139.0 mmol/L (136-145); Total Protein 6.1 gm/dl (6.0-8.3)
--- NOTE | 2025-07-26 09:47 | Gastroenterology Progress Note ---
Date of Service July 26, 2025 Assessment & Plan (1) Choledocholithiasis with obstruction: Plan: Doing well. Will plan ERCP for tomorrow. Discussed procedure and risks with her. Admission and Anticipated Discharge Date Admission Date: July 24, 2025 Subjective Feeling fine. Bilirubin climbing a little while transaminases creeping down. No pain Physical Exam Physical Exam: Icteric but in good spirits Constitutional: WD/WN, vitals as above Results & Data Vital Signs (Past 12 Hours) Vital Signs Temp Pulse Pulse Resp BP Pulse Ox O2 Del Method 07/26/25 07:06 36.3 C L 67 18 121/73 95 Room Air 07/26/25 03:04 36.6 C 75 17 121/75 94 Room Air 07/25/25 23:59 37.1 C 60 19 130/74 96 Room Air 07/25/25 23:09 56 L
--- NOTE | 2025-07-26 11:26 | Surgery Progress Note ---
Date of Service July 26, 2025 Assessment & Plan (1) Choledocholithiasis with obstruction: Plan: needs ERCP clinically stable without signs of cholangitis will see as outpatient to discuss lap mary Admission and Anticipated Discharge Date Admission Date: July 24, 2025 Subjective no complaints no N/V AF VSS TB con't to rise Review of Systems Constitutional: no fever and no chills Respiratory: no dyspnea Cardiovascular: no chest pain Gastrointestinal: no abdominal pain, no nausea and no vomiting Integumentary: + yellowing of the skin Neurologic: no generalized weakness Psychiatric: no behavioral changes Physical Exam Constitutional: WD/WN, vitals as above Eyes: + scleral abnormality Respiratory: normal respiratory effort Cardiovascular: Rate/Rhythm: regular rate and regular rhythm Gastrointestinal (Abdomen): Inspection/Auscultation: abdomen normal to inspection; abdomen not distended Percussion/Palpation: abdomen soft; abdomen nontender Musculoskeletal: Head/Neck/Chest: normocephalic and head atraumatic Skin: no rashes, warm and dry + jaundice Results & Data Vital Signs (Past 12 Hours) Vital Signs Temp Pulse Resp BP Pulse Ox O2 Del Method 07/26/25 07:06 36.3 C L 67 18 121/73 95 Room Air 07/26/25 03:04 36.6 C 75 17 121/75 94 Room Air
--- NOTE | 2025-07-26 16:51 | Hospitalist Progress Note ---
Date of Service July 26, 2025 Assessment & Plan (1) Choledocholithiasis with obstruction: Plan 60-year-old woman here with acute jaundice, biliary obstruction she had abdominal ultrasound, CT abdomen, MRCP which indicate obstruction of the common bile duct. No stone directly visualized. She does have a very large 2.5 cm gallstone in the gallbladder differential diagnosis is choledocholithiasis versus other reason for biliary duct obstruction such as stricture, mass/compression she had epigastric pain rating up towards the chest at the very onset, since then has been symptom-free. Tolerating clear liquid diet remains clinically stable day of her presentation 48 hours ago we did not have ERCP capability several other facilities were called but also did not have ERCP available until Sunday unless an emergency general surgery and gastroenterology consulting, recommend ERCP which should be able to be done tomorrow and will continue to monitor physical exam, symptoms, daily CMP continue pip-tazo, though no evidence of cholangitis or acute cholecystitis at this time hold heparin prophylaxis, n.p.o. after midnight # H/o Graves disease, in remission. Followed with endocrinology, most recent visit 01/08/2024. No medications. VTE Prophylaxis: subcu heparin held for ERCP Admission and Anticipated Discharge Date Admission Date: July 24, 2025 Subjective Siobhan continues to be asymptomatic no abdominal pain nausea or vomiting no chest pain or shortness of breath clinically stable and afebrile overnight Physical Exam Physical Exam: Last 24h vitals reviewed GEN: no acute distress, sitting in bed HEENT: pupils equal, icteric sclera, moist mucous membranes RESP: normal WOB, CTAB CV: reg no mrg ABD: soft/nt/nd +BT : no andrew SKIN: warm and dry, no generalized rashes, jaundiced NEURO: AOx person, place, and situation. Face symmetric, speech normal, moves 4 ext spontaneously and equally Results & Data Results & Data Vital Signs (Past 12 Hours) Vital Signs Temp Pulse Resp BP Pulse Ox O2 Del Method 07/26/25 15:46 36.8 C 66 18 129/80 95 Room Air 07/26/25 11:41 36.3 C L 64 18 136/83 95 Room Air 07/26/25 07:06 36.3 C L 67 18 121/73 95 Room Air Laboratory Results - Laboratory Studies: - WBC: 4.5 - Hgb: 12.5 - Plt: 233 - Na: 139 - K: 3.9 - Cr: 1.19 - Total bilirubin: 14.6 - AST: 85 - ALT: 146 - Alk phos: 276 - Normal sinus rhythm to sinus bradycardia on review of telemetry PG Care Time/CCT Total # of Minutes Spent Total Time Spent with Patient: Total time spent is greater than 50% in coordination of care (as documented) at patient's floor/unit and/or counseling patient: Coding Level of Care Code 93324 SUB INP/OBS CARE 235MIN Diagnoses Choledocholithiasis with obstruction K80.51
[2025-07-27 06:47] LABS: Hematocrit (blood only) 32.9 % (37.0-47.0); Hemoglobin 11.6 g/dl (12.0-16.0); Mean Corpuscular Hemoglobin 30.7 pg (25.0-34.0); Mean Corpuscular Volume 87.0 fL (80.0-100.0); Platelet Count 204 K/uL (130-400); RDW Standard Deviation 43.8 fL (36.4-46.3); Red Blood Count 3.78 M/uL (4.20-5.40); White Blood Count 3.94 K/ul (4.8-10.8)
[2025-07-27 07:10] LABS: Alanine Aminotransferase 126.0 U/L (7-52); Albumin Globulin Ratio 1.5 (0.9-2); Albumin Level 3.5 gm/dl (3.4-5.0); Alkaline Phosphatase 261.0 U/L (34-104); Anion Gap 6.0 (3-11); Bilirubin,Total 14.6 mg/dl (0.2-1.0); Blood Urea Nitrogen 6.0 mg/dl (6-23); Calcium 9.1 mg/dl (8.6-10.3); Carbon Dioxide 30.0 mmol/L (21-32); Chloride 104.0 mmol/L (98-107); Creatinine Clr Calc Pharmacy 54.4 ml/min; Globulin 2.4 gm/dl (2.5-4.0); Glucose 107.0 mg/dl (70-99(Fasting)); Potassium 4.1 mmol/L (3.5-5.1); Sodium 140.0 mmol/L (136-145); Total Protein 5.9 gm/dl (6.0-8.3)
[2025-07-27] MEDS: LACTATED RINGER'S 1,000 ML IV SCH (08:59)
--- NOTE | 2025-07-27 10:45 | Anesthesiology Consultation ---
Date of Service July 27, 2025 History Surgery Operation Date: 07/27/25 08:20 Proposed Procedures p Endoscopic Retrograde Cholangiopancreatogram - Robert Mccormick MD Height/Weight Height: 5 ft 4 in Weight: 92 kg Allergies Allergy/AdvReac Type Severity Reaction Status Date / Time flu vaccines Allergy Uncoded 01/08/24 13:33 Medications Home Medications Medication Instructions Recorded Confirmed Last Taken No Known Home Medications 07/24/25 07/24/25 Unknown Active Medications Generic Name Dose Route Start Last Admin Trade Name Trip PRN Reason Stop Dose Admin Piperacillin Sod/Tazobactam Sod 4.5 gm in 100 mls @ 25 mls/hr 07/25/25 04:00 07/27/25 09:59 Zosyn IV 08/04/25 03:59 Infused Q8H CHRISTY Infusion Protocol Lactated Ringer's 1,000 mls @ 125 mls/hr 07/27/25 08:30 07/27/25 08:59 Lr IV 07/30/25 08:29 125 mls/hr .Q8H CHRISTY Administration Past Medical History Medical History (Updated 07/27/25 @ 10:44 by Titi Beltrán MD) Hyperthyroidism Social History Smoking Status: Current every day smoker Smoking cigarettes per day: 7 Do You Dip or Chew Tobacco: No Hx Alcohol Use: No Hx Substance Use: No substance use type: does not use Physical Exam Vital Signs Last Vital Signs Temp 36.7 C 07/27/25 07:00 Pulse 52 L 07/27/25 08:00 Resp 16 07/27/25 07:00 BP 136/77 07/27/25 07:00 Pulse Ox 97 07/27/25 07:00 O2 Del Method Room Air 07/27/25 07:00 Testing Laboratory Results 07/27/25 06:15 07/27/25 06:15
--- NOTE | 2025-07-27 11:00 | History & Physical Bridge Note ---
Date of Service July 27, 2025 History & Physical Bridge Note I have examined the patient, reviewed the History & Physical and in the interval since the performance of the History & Physical I have noted the following changes of clinical significance: no changes noted. Patient is a 60 year old female admitted after imaging was suggestive of possible stone or biliary obstruction. 07/27/25 T bili 14.6, AST 72, ALT 126, ALK 261. wbc 3.94, Hgb 11.6, hct 32.9, plts 204. MRI - 1. There is marked dilation of the intrahepatic biliary tree, with the common bile duct measuring 10 mm at the dagoberto hepatis. There is abrupt transition distal to the dagoberto hepatis with an abrupt cutoff for meniscus sign. No obvious choledocholithiasis identified. The distal common bile duct is asymmetrically decompressed, measuring only 3 mm at the head of the pancreas. Differential consideration includes tumefactive sludge or a subtle mass lesion in the common bile duct, not clearly evident. Histologic sampling of this lesion is recommended, as clinically indicated. There is partially occlusive debris in the dependent biliary radicles serving segment 6 (series 4; image 20). There is a rounded hypointense T2 structure in the gallbladder measuring 2.5 cm with the gallbladder collapsed around the structure. A gallstone is the primary consideration. she is planned for ERCP today to further evaluate. Supervising Physician Co-Signing Physician Notes I saw and examined this patient with our nurse practitioner and agree with her assessment and plan. Obstructive jaundice no signs of cholangitis at the present time. On prophylactic antibiotics. MRI imaging reveals distal common bile duct obstruction. Will proceed with ERCP possible stent placement if stricture present.
--- NOTE | 2025-07-27 11:05 | Surgery Progress Note ---
Date of Service July 27, 2025 Assessment & Plan (1) Choledocholithiasis with obstruction: Plan: needs ERCP clinically stable without signs of cholangitis or cholecystitis continue NPO continue medical management Admission and Anticipated Discharge Date Admission Date: July 24, 2025 Subjective feeling good no abdominal pain, fevers, chills, n,v hungry waiting for ERCP today wants to get home Physical Exam Constitutional: WD/WN, vitals as above cooperative and comfortable; no acute distress and not ill appearing Respiratory: normal respiratory effort; no respiratory distress, no labored breathing, no retractions and no cough Gastrointestinal (Abdomen): Inspection/Auscultation: abdomen normal to inspection; abdomen not distended Percussion/Palpation: abdomen soft; abdomen nontender, no guarding and abdomen not rigid Skin: no rashes, warm and dry + jaundice Psychiatric: Orientation: alert and oriented x 3 Results & Data Vital Signs (Past 12 Hours) Vital Signs Temp Pulse Pulse Resp BP Pulse Ox O2 Del Method 07/27/25 08:00 52 L 07/27/25 07:00 36.7 C 54 L 16 136/77 97 Room Air 07/27/25 02:22 36.8 C 66 18 120/67 95 Room Air 07/26/25 23:42 36.9 C 71 18 140/76 96 Room Air Laboratory Results 07/27/25 Range/Units 06:15 WBC 3.94 L (4.8-10.8) K/ul RBC 3.78 L (4.20-5.40) M/uL Hgb 11.6 L (12.0-16.0) g/dl Hct 32.9 L (37.0-47.0) % MCV 87.0 (80.0-100.0) fL MCH 30.7 (25.0-34.0) pg MCHC 35.3 (32.0-36.0) g/dL RDW Std Deviation 43.8 (36.4-46.3) fL RDW Coeff of Nia 14.0 (11.5-14.5) % Plt Count 204 (130-400) K/uL MPV 10.6 (9.4-12.4) fL Sodium 140 (136-145) mmol/L Potassium 4.1 (3.5-5.1) mmol/L Chloride 104 (98-107) mmol/L Carbon Dioxide 30 (21-32) mmol/L Anion Gap 6 (3-11) BUN 6 (6-23) mg/dl Creatinine 1.24 H (0.6-1.2) mg/dl Est Cr Clr Drug Dosing 54.4 ml/min eGFR 50.44 BUN/Creatinine Ratio 4.8 L (10-20) Glucose 107 H (70-99(Fasting)) mg/dl Calcium 9.1 (8.6-10.3) mg/dl Total Bilirubin 14.6 H (0.2-1.0) mg/dl AST 72 H (13-39) U/L ALT 126 H (7-52) U/L Alkaline Phosphatase 261 H (34-104) U/L Total Protein 5.9 L (6.0-8.3) gm/dl Albumin 3.5 (3.4-5.0) gm/dl Globulin 2.4 L (2.5-4.0) gm/dl Albumin/Globulin Ratio 1.5 (0.9-2)
[2025-07-27] MEDS ORDERED: LIDOCAINE 2% 2 ML VIAL/AMP(20MG/ML) INFIL ONE (12:12)
[2025-07-27] MEDS ORDERED: DEXAMETHASONE SOD INJ 4 MG/ML VIAL ONE (12:12)
[2025-07-27] MEDS ORDERED: ROCURONIUM BROMIDE 10 MG/ML 5 ML VIAL IV ONE (12:12)
[2025-07-27] MEDS ORDERED: PROPOFOL IV EMULSION 10 MG/ML 20 ML VIAL IV ONE (12:12)
[2025-07-27] MEDS ORDERED: GLYCOPYRROLATE 0.2 MG/ML VIAL ONE (12:12)
[2025-07-27] MEDS ORDERED: ONDANSETRON INJ 2 MG/ML 2 ML VIAL ONE (12:12)
[2025-07-27] MEDS ORDERED: SUGAMMADEX SODIUM 200 MG/2 ML VIAL IV ONE (12:13)
[2025-07-27] MEDS ORDERED: MIDAZOLAM HCL 1 MG/ML 2ML VIAL ONE (12:13)
--- NOTE | 2025-07-27 13:57 | Anesthesiology Consultation ---
Date of Service July 27, 2025 Assessment & Plan (1) Encounter for pre-operative examination: Chart Review Chart Review: Acceptable Risk for Surgery History Surgery Operation Date: 07/27/25 08:20 Proposed Procedures p Endoscopic Retrograde Cholangiopancreatogram - Robert Mccormick MD Height/Weight Height: 5 ft 4 in Weight: 92 kg Allergies Allergy/AdvReac Type Severity Reaction Status Date / Time flu vaccines Allergy Uncoded 01/08/24 13:33 Medications Home Medications Medication Instructions Recorded Confirmed Last Taken No Known Home Medications 07/24/25 07/24/25 Unknown Active Medications Generic Name Dose Route Start Last Admin Trade Name Freq PRN Reason Stop Dose Admin Piperacillin Sod/Tazobactam Sod 4.5 gm in 100 mls @ 25 mls/hr 07/25/25 04:00 07/27/25 12:25 Zosyn IV 08/04/25 03:59 25 mls/hr Q8H CHRISTY Administration Protocol Lactated Ringer's 1,000 mls @ 125 mls/hr 07/27/25 08:30 07/27/25 08:59 Lr IV 07/30/25 08:29 125 mls/hr .Q8H CHRISTY Administration Past Medical History Medical History (Updated 07/27/25 @ 15:02 by Titi Beltrán MD) Graves disease Past Surgical History Surgical History (Updated 07/27/25 @ 15:02 by Titi Beltrán MD) No pertinent past surgical history Social History Smoking Status: Light tobacco smoker Smoking cigarettes per day: 7 Do You Dip or Chew Tobacco: No Hx Alcohol Use: No Hx Substance Use: No substance use type: does not use Physical Exam Vital Signs Last Vital Signs Temp 36.5 C 07/27/25 11:11 Pulse 57 L 07/27/25 11:11 Resp 18 07/27/25 11:11 BP 126/77 07/27/25 11:11 Pulse Ox 97 07/27/25 11:11 O2 Del Method Room Air 07/27/25 11:11 Testing Laboratory Results 07/27/25 06:15 07/27/25 06:15 Electrocardiogram Date: 07/27/25 Findings: + SB @ (58)
--- NOTE | 2025-07-27 15:55 | Hospitalist Progress Note ---
Date of Service July 27, 2025 Assessment & Plan (1) Choledocholithiasis with obstruction: Plan 60-year-old woman here with acute jaundice, biliary obstruction she had abdominal ultrasound, CT abdomen, MRCP which indicate obstruction of the common bile duct. No stone directly visualized. She does have a very large 2.5 cm gallstone in the gallbladder differential diagnosis is choledocholithiasis versus other reason for biliary duct obstruction such as stricture, mass/compression she had epigastric pain rating up towards the chest at the very onset, since then has been symptom-free. Tolerating clear liquid diet remains clinically stable day of her presentation on Sunday we did not have ERCP capability several other facilities were called but also did not have ERCP available until today unless an emergency. fortunately she remained stable throughout the weekend vital signs symptoms and labs remain stable today continue pip-tazo, though no evidence of cholangitis or acute cholecystitis at this time general surgery and gastroenterology consulting, recommend ERCP which is scheduled for today with Dr. Mccormick # H/o Graves disease, in remission. Followed with endocrinology, most recent visit 01/08/2024. No medications. VTE Prophylaxis: subcu heparin stopped for ERCP. following ERCP should avoid subcu heparin aspirin and NSAIDs Admission and Anticipated Discharge Date Admission Date: July 24, 2025 Subjective continues to feel fine no abdominal pain no right upper quadrant pain no nausea vomiting tolerating clears well remains jaundiced with mild itching Physical Exam Physical Exam: Last 24h vitals reviewed GEN: sitting up in bed awake and alert with visitors a sister and her aunt HEENT: pupils equal, icteric sclera, moist mucous membranes RESP: normal WOB CV: deferred ABD: nondistended : no andrew SKIN: warm and dry, no generalized rashes, jaundiced NEURO: AOx person, place, and situation. Face symmetric, speech normal, moves 4 ext spontaneously and equally Results & Data Results & Data Vital Signs (Past 12 Hours) Vital Signs Temp Pulse Pulse Resp BP Pulse Ox O2 Del Method 07/27/25 11:11 36.5 C 57 L 18 126/77 97 Room Air 07/27/25 08:00 52 L 07/27/25 07:00 36.7 C 54 L 16 136/77 97 Room Air Laboratory Results white blood count 4, hemoglobin 11, platelets 204 Creatinine has increased a little bit to 1.24 AST 72 ALT 126 alk phos 261 and bilirubin unchanged at 14 PG Care Time/CCT Total # of Minutes Spent Total Time Spent with Patient: Total time spent is greater than 50% in coordination of care (as documented) at patient's floor/unit and/or counseling patient: Coding Level of Care Code 52772 SUB INP/OBS CARE 2MIN Diagnoses Choledocholithiasis with obstruction K80.51
--- NOTE | 2025-07-27 17:34 | GI REPORT ---
[facility] Patient: SORAYA FERGUSON : 1965 Sex at : Female Age: 60 Years Procedure: ERCP Date: 07/27/2025 Attending Physician: Robert Mccormick MD Referring MD: Kesha Oates Indications: - Abnormal liver function test - Abnormal MRCP - Jaundice Medications: - General Anesthesia - Indomethacin 100 mg SD - See the Anesthesia note for documentation of the administered medications Complications: - No immediate complications. Estimated Blood Loss: - Estimated blood loss was minimal. Procedure: - Prior to the procedure, a History and Physical was performed, and patient medications, allergies and sensitivities were reviewed. The patient's tolerance of previous anesthesia was reviewed. - The risks and benefits of the procedure and the sedation options and risks were discussed with the patient. All questions were answered and informed consent was obtained. - Prophylactic Antibiotics: The patient requires prophylactic antibiotics as clinically indicated based on published guidelines for the planned ERCP. The patient received antibiotic therapy before the procedure. - General anesthesia under the supervision of a MAILROOM COURIER was determined to be medically necessary for this procedure based on complex procedure (ERCP, EUS). - Prior to the procedure, a History and Physical was performed, and patient medications and allergies were reviewed. The patient is competent. The risks and benefits of the procedure and the sedation options and risks were discussed with the patient. All questions were answered and informed consent was obtained. Patient identification and proposed procedure were verified by the physician in the procedure room. Mental Status Examination: alert and oriented. After reviewing the risks and benefits, the patient was deemed in satisfactory condition to undergo the procedure. The anesthesia plan was to use general anesthesia. Immediately prior to administration of medications, the patient was re-assessed for adequacy to receive sedatives. The heart rate, respiratory rate, oxygen saturations, blood pressure, adequacy of pulmonary ventilation, and response to care were monitored throughout the procedure. The physical status of the patient was re-assessed after the procedure. - The ercp scope was introduced through the mouth and advanced to the duodenum and used to inject contrast into the bile duct. - The ERCP was accomplished without difficulty. - The patient tolerated the procedure well. Findings: - The bile duct was deeply cannulated with the short-nosed traction sphincterotome. Contrast was injected. I personally interpreted the bile duct images. Image quality was excellent. The lower third of the main bile duct contained multiple stones, the largest of which was small in diameter. - An 8 mm biliary sphincterotomy was made with a short nose sphincterotome. There was no post-sphincterotomy bleeding. - The biliary tree was swept with a 12 mm balloon starting at the bifurcation. Many stones were removed. No stones remained. - Superficial cannulation of and contrast injection into the distal pancreatic duct was accomplished. I personally interpreted the pancreatic duct images. Image quality was adequate. The distal duct appeared normal. Impression: - Choledocholithiasis was found. Complete removal was accomplished by biliary sphincterotomy and balloon extraction. - A biliary sphincterotomy was performed. - The biliary tree was swept. Recommendation: - Clear liquid diet. - Continue present medications. Procedure Code(s): - 81939, Endoscopic retrograde cholangiopancreatography (ERCP); with removal of calculi/debris from biliary/pancreatic duct(s) - 55783, Endoscopic retrograde cholangiopancreatography (ERCP); with sphincterotomy/papillotomy - 76568, Combined endoscopic catheterization of the biliary and pancreatic ductal systems, radiological supervision and interpretation Diagnosis Code(s): - R79.89, Other specified abnormal findings of blood chemistry - R93.2, Abnormal findings on diagnostic imaging of liver and biliary tract - R17, Unspecified jaundice - K80.50, Calculus of bile duct without cholangitis or cholecystitis without obstruction CPT(R) - 2023 copyright [employer]. All Rights Reserved. The CPT codes, CCI edits and ICD codes generated are intended as suggestions and were generated based on input data. These codes are preliminary and upon paper stripper review may be revised to meet current compliance and payer requirements. The provider is responsible for the final determination of appropriate codes, and modifiers. Robert Mccormick MD This document has been electronically signed. Note Initiated:07/27/2025 Note Completed:07/27/2025 5:33 PM \\[email or web address]\[id number]
--- NOTE | 2025-07-27 17:59 | Anesthesiology Progress Note ---
Date of Service July 27, 2025 Anesthesia Post Procedure Vital Signs Vital Signs: Temp Pulse Pulse Pulse Resp BP Pulse Ox 07/27/25 17:50 64 15 138/82 97 07/27/25 17:40 71 19 147/75 H 97 07/27/25 17:31 36.1 C L 72 18 133/73 95 07/27/25 15:42 36.5 C 55 L 16 126/98 97 07/27/25 15:00 49 L 07/27/25 11:11 36.5 C 57 L 18 126/77 97 07/27/25 08:00 52 L 07/27/25 07:00 36.7 C 54 L 16 136/77 97 07/27/25 02:22 36.8 C 66 18 120/67 95 07/26/25 23:42 36.9 C 71 18 140/76 96 07/26/25 22:46 84 07/26/25 19:20 36.7 C 60 16 129/76 94 O2 Del Method O2 Flow Rate 07/27/25 17:50 Nasal Cannula 2 07/27/25 17:40 Nasal Cannula 2 07/27/25 17:31 Nasal Cannula 2 07/27/25 15:42 Room Air 07/27/25 15:00 07/27/25 11:11 Room Air 07/27/25 08:00 07/27/25 07:00 Room Air 07/27/25 02:22 Room Air 07/26/25 23:42 Room Air 07/26/25 22:46 07/26/25 19:20 Room Air Transfer of Care Handoff Completed per policy Notes Mental Status: alert / awake / arousable and participated in evaluation Patient Amnestic to Procedure: Yes Nausea / Vomiting: adequately controlled Pain: adequately controlled Airway Patency, RR, SpO2: stable & adequate BP & HR: stable & adequate Hydration State: stable & adequate Anesthetic Complications: no major complications apparent and Pt Satisfied with anesthetic care
[2025-07-27] MEDS: GLUCAGON FOR INJ 1 MG VIAL ONE (18:20)
[2025-07-27] MEDS: INDOMETHACIN 50 MG SUPP PR ONE (18:20)
[2025-07-28 07:04] LABS: Hematocrit (blood only) 31.6 % (37.0-47.0); Hemoglobin 11.4 g/dl (12.0-16.0); Mean Corpuscular Hemoglobin 30.9 pg (25.0-34.0); Mean Corpuscular Volume 85.6 fL (80.0-100.0); Platelet Count 216 K/uL (130-400); RDW Standard Deviation 43.7 fL (36.4-46.3); Red Blood Count 3.69 M/uL (4.20-5.40); White Blood Count 5.72 K/ul (4.8-10.8)
--- NOTE | 2025-07-28 07:14 | Gastroenterology Progress Note ---
Date of Service July 28, 2025 Assessment & Plan (1) Choledocholithiasis with obstruction: Plan: Status post ERCP with stone extraction. No signs of post ERCP complications. Await surgical input regarding ultimate cholecystectomy. Admission and Anticipated Discharge Date Admission Date: July 24, 2025 Subjective Resting comfortably denies shortness of breath chest pain or abdominal pain Physical Exam Physical Exam: No acute distress Respiratory rate regular Cardiac rhythm regular Abdomen soft nontender Results & Data Results & Data Vital Signs (Past 12 Hours) Vital Signs Temp Pulse Pulse Resp BP Pulse Ox O2 Del Method 07/28/25 03:11 36.3 C L 49 L 16 117/69 93 Room Air 07/27/25 23:21 45 L 07/27/25 22:48 37.0 C 62 18 125/72 96 Room Air 07/27/25 19:22 36.7 C 58 L 18 147/69 H 93 Room Air PG Care Time/CCT Total # of Minutes Spent Total Time Spent with Patient: Total time spent is greater than 50% in coordination of care (as documented) at patient's floor/unit and/or counseling patient: Coding Level of Care Code 59285 SUB INP/OBS CARE 2MIN Diagnoses Choledocholithiasis with obstruction K80.51
[2025-07-28 07:33] LABS: Alanine Aminotransferase 116.0 U/L (7-52); Albumin Globulin Ratio 1.4 (0.9-2); Albumin Level 3.6 gm/dl (3.4-5.0); Alkaline Phosphatase 250.0 U/L (34-104); Anion Gap 8.0 (3-11); Bilirubin,Total 7.8 mg/dl (0.2-1.0); Blood Urea Nitrogen 10.0 mg/dl (6-23); Calcium 8.9 mg/dl (8.6-10.3); Carbon Dioxide 25.0 mmol/L (21-32); Chloride 103.0 mmol/L (98-107); Creatinine Clr Calc Pharmacy 64.9 ml/min; Globulin 2.6 gm/dl (2.5-4.0); Glucose 177.0 mg/dl (70-99(Fasting)); Potassium 3.9 mmol/L (3.5-5.1); Sodium 136.0 mmol/L (136-145); Total Protein 6.2 gm/dl (6.0-8.3)
[2025-07-28 07:50] VITALS: RESP 20
--- NOTE | 2025-07-28 09:42 | Fluoroscopy Report ---
[place] ERCP biliary ductal CLINICAL HISTORY: ERCP COMPARISON STUDY: 07/24/2025 MRCP FLUOROSCOPY TIME: 6 minutes 56 seconds FLUOROSCOPY IMAGES: 7 EXPOSURE DOSE: 106 mGy FINDINGS: Endoscope is present. Common bile duct is cannulated with contrast injected. On the initial images there is a filling defect distally in the common bile duct. This is no longer seen after ball oon sweeping. IMPRESSION: Fluoroscopy for ERCP. ACT 112: Negative or not required by law. Electronically signed by: Horace Cardoso M.D. 07/28/2025 9:41 AM
[2025-07-28 11:47] VITALS: BP 120/73; TEMP 98.1; O2SAT 95
--- NOTE | 2025-07-28 11:50 | Electrocardiogram Report ---
Test Reason : Blood Pressure : */* mmHG Vent. Rate : 58 BPM Atrial Rate : 58 BPM P-R Int : 156 ms QRS Dur : 78 ms QT Int : 430 ms P-R-T Axes : 5 50 25 degrees QTcB Int : 422 ms Sinus bradycardia Otherwise normal ECG No previous ECGs available Confirmed by Dio Dixon ([id number]) on 07/28/2025 11:50:30 AM Referred By: Kesha Oates Confirmed By: Dio Dixon
--- NOTE | 2025-07-28 13:04 | Discharge Summary ---
Discharge Summary Date of Service July 28, 2025 Principal Dx & Hospital Course #1 = Principal Diagnosis (1) Choledocholithiasis with obstruction: (2) Jaundice: Aman William is a 60 year old female admitted to [facility] from July 24 - July 28, 2025 due to obstructive choledocholithiasis causing jaundice without infection. She was covered with antibiotics for prophylaxis for cholangitis awaiting ERCP but no cholangitis developed during her stay. Choledocholithiasis was treated with ERCP performed by Dr Mccormick on July 27, 2025 and no antibiotics were recommended on discharge. Recommend paula ntual treatment with cholecystectomy but she requested this be performed as an outpatient. She should follow up with surgery for cholecystectomy. Advised to avoid NSAIDs for the next week after ERCP. Notes For Next Care Provider Follow up with general surgery for cholecystectomy Follow up with PCP for repeat LFTs in 1-2 weeks Medication Changes From Visit None Admission HPI Per Admitting Provider 60-year-old female PMHx hypothyroidism presenting for referral by PCP for concerns of stone blood in biliary tract and concerns for jaundice. Patient states that 5 days [employer] she awoke with epigastric pain that did not feel the same as her normal indigestion. She states that moving around helped alleviate the pain some and when she took a Tums she did not notice any change in her symptoms. She ended up taking an Aleve which did help alleviate some of the discomfort she was having. She states that this did not again return but following the days after that she just did not "feel myself." She states that 2 days [employer] she remembers being on a video call for work and did not notice any abnormalities in her appearance, however that evening she noticed that her skin and eyes appeared to be more yellow than she had noted before. She denies any abdominal pain, N/V/D/C, or fever/chills. She denies any symptoms with eating, does state occasionally symptoms will make her have looser bowel movements than others, but this is not a new occurrence to her. She has not been sick otherwise. No chest pain, SOB, palpitations, numbness/tingling, URI symptoms, LUTS, weakness, syncope, or falls. Patient is concerned regarding if her insurance will cover hospital stay, initially leading to conversation about a transfer or needed going to a hospital that would assure except her insurance. She then later notes that she would just like to go to a hospital that we will treat her appropriately if transfer is needed. She is also concerned about her 5 cats that live at home, which she has rescued. States that they have a very intensive daily routine with them and she is concerned that they are not to be taking care of that she would. Patient does express some anxious feelings regarding pain for the hospital stay. Assured her that admission and treatment is highly recommended to prevent unwanted complications. Patient agreeable to stay. ED evaluation reveals CBC without leukocytosis or leukopenia, stable H&H; CMP total bilirubin 12.6, AST 108, ALT 209, alkaline phosphatase 320; CTAP bile duct dilatation with suspected obstructing choledocholithiasis. Please see Dr. Taylor's attestation for adjustments/additions to treatment plan. Discharge Exam Gastrointestinal (Abdomen) normal bowel sounds, soft, nontender, no hepatosplenomegaly Discharge Plan Discharge Items Patient Disposition: Home - Self-Care Reason For Visit: OBSTRUCTIVE CHOLEDOCHOLITHIASIS Discharge Diagnosis: Obstructive choledocholithiasis (obstructing gallstone in bile duct) Condition on Discharge: Fair Activity: Resume your previous activity Non-emergency contact: Primary Care Provider Call non-emergency contact if: you have any medication questions and your symptoms worsen Follow-up/Referrals: Kesha Oates DO [Primary Care Provider] - 07/30/25 8:25 am (Follow scheduled on 07/30/25 at 8:25) Zander Hays MD [Physician] - Diet: Low Fat Addtl Attending Provider Instructions: You were admitted to [facility] from July 24 - July 28, 2025 due to gallstone in your bile duct causing obstructive jaundice (elevated bilirubin causing yellowing of your skin). You were covered with antibiotics for prophylaxis for cholangitis but no cholangitis developed during your stay. The stones were treated with ERCP (endoscopic retrograde cholangiopancreatography) relieving the obstruction and stones on July 27, 2025. Recommend eventual treatment of cholecystectomy. Please follow up with general surgery to arrange this as an outpatient (see number for Dr Hays below). Please do not take any NSAIDs (any over the counter pain medication over than acetaminophen) for the next week. Kind regards, Dr Armaan Leigh Pending Studies at Discharge: No Stand-Alone Forms: My [facility], Smoking Cessation Medications and DC Order Prescriptions: No Action No Known Home Medications Discharge Orders: Discharge Order (Routine); Ordered 07/28/25 Ordered By: Armaan Leigh Admission Data Admit Date/Time: 07/24/25 23:21 Attending Provider: Armaan Leigh Admit Provider: Chandan Taylor Primary Care Provider: Kesha Oates Other Providers: Chandan Taylor; Steve Evans Jr; Zander Hays Other Interventions: Discharge Summary Assessment (RN) Last Done: 07/28/25 13:23 Hospital Stay Data Consultations 07/24/25 21:47 ED Decision to Admit Stat 07/25/25 00:50 Consult Gastroenterology Routine 07/25/25 01:36 Consult General Surgery Routine Procedures Performed Operation Date: 07/27/25 08:20 Actual Procedures p Endoscopic Retrograde Cholangiopancreato(Not Applicable) - Robert Mccormick MD Diagnostic Imagining Performed 07/24/25 16:09 CT Abd and Pelvis [CT abd pelvis IV con only] Stat 07/24/25 22:23 MR MRCP Urgent 07/27/25 [place] ERCP biliary ductal Routine Pending Results Patient Have Any Pending Studies at Discharge: No Discharge Instructions Given to Patient (Per Discharging Provider) You were admitted to [facility] from July 24 - July 28, 2025 due to gallstone in your bile duct causing obstructive jaundice (elevated bilirubin causing yellowing of your skin). You were covered with antibiotics for prophylaxis for cholangitis but no cholangitis developed during your stay. The stones were treated with ERCP (endoscopic retrograde cholangiopancreatography) relieving the obstruction and stones on July 27, 2025. Recommend eventual treatment of cholecystectomy. Please follow up with general surgery to arrange this as an outpatient (see number for Dr Hays below). Please do not take any NSAIDs (any over the counter pain medication over than acetaminophen) for the next week. Kind regards, Dr Armaan Leigh Total Time Total Time Spent Total Time Spent (In Minutes): 40 Total Time Includes: Examination of the Patient, Discharge Planning, Medication Reconciliation and Communication With Other Providers (Dr Mccormick) Coding Level of Care Code 11246 INP/OBS DISCH >30 MIN Diagnoses Choledocholithiasis with obstruction K80.51 Jaundice [id number]
[2025-07-28 13:29] VITALS: PULSE 54
== END 2025-07-28 16:30 | disposition home or self-care (01) | DRG 446 ==
LOC: ED 15:15 → SUATTDRO 23:21 → 2S 23:21